=== PATIENT | male | born 1965 | race Caucasian/White ===

== ENCOUNTER 2016-12-12 14:39 | Emergency (ER) | payer BC ==
[~2016-12-12 14:39] MED LIST: ALLEGRA60 MG; FLECAINIDE ACET50 MG PO; HYCET1 ML PO; METOPROLOL SUCC50 MG PO; PROAIR HFA IN
--- NOTE | 2016-12-12 16:10 | DIAGNOSTIC IMAGING REPORT ---
PROCEDURE: XR CHEST 2 VIEW INDICATION: CHEST PAIN TECHNIQUE: PA and lateral view. COMPARISON: CT chest 05/22/2015 FINDINGS: Lungs are clear. Right apical surgical clips. Cardiovascular structures are normal. Bony thorax is unremarkable. IMPRESSION: 1. Negative chest.
--- NOTE | 2016-12-12 16:24 | ED NURSING NOTES ---
Clinical Report - Nurses [facility] [address] [place] [address] 12/12/2016 14:41 [id number] TRI[facility] Triage time 14:45. Acuity: LEVEL 3. Chief Complaint: FALL (off porch). 14:53 12/12/16. Alert. No acute distress. SEPSIS SCREEN: Sepsis Screen. Negative (no infection suspected/documented). ESAU COMA SCORE: Esau Coma Scale: 15- eyes open spontaneously (4); best verbal response- oriented x 4 (5); best motor response- obeys commands (6). --14:53 Merle Vivar R.N. 14:48 12/12/16. BP: 122/69. HR: 60. RR: 16. O2 saturation: 100% on room air. Temp: 97.6 F (oral). Pain level now 5/10. --14:53 Merle Vivar R.N. Weight: 88.4 kg stated. Height/Length: 72 inches Per Patient. BMI: 26.5. --14:48 Merle Vivar R.N. Medications Metoprolol Tartrate Oral. --14:50 Merle Vivar R.N. Allergies No Known Drug Allergy. --14:51 Merle Vivar R.N. Medication/allergy information source: the patient. --14:53 Merle Vivar R.N. History Arrived by private vehicle. Historian: patient. Accompanied by family. Primary physician (ana laura). ( fall off porch 9 days ago, hit right chest wall on 2x4. C/O continued pain, worsening with movement and deep breaths. Denies any other injuries, denies hitting head or LOC.). This occurred (9 days ago). Occurred at home. 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 Trauma activation: Pre-hospital notification of patient arrival was not received. SOCIAL HX: Never smoker. No alcohol use or drug use. FALL RISK ASSESSMENT: Fall risk assessment completed. No fall risk identified. NUTRITIONAL RISK ASSESSMENT: The nutritional risk assessment revealed no deficiencies. FUNCTIONAL ASSESSMENT: Functional assessment: no impairments noted. LEARNING NEEDS ASSESSMENT: The learning needs assessment revealed no barriers. SKIN INTEGRITY ASSESSMENT: Skin integrity risk assessment completed. No skin integrity risk identified. --14:53 Merle Vivar R.N. PROBLEMS: SVT. Pancreatitis. Cancer. Valvular Heart Disease. Arrhythmia. Hematoma. Lower Extremity Pain. MRSA Infection. --14:51 Merle Vivar R.N. ADDITIONAL SURGERIES: Cardiac ablation. Cholecystectomy. Knee Surgery. Throat cancer surgery. Tonsillectomy. Umbilical Hernia Repair. --14:51 Merle Vivar R.N. Interventions ID band on patient. To treatment room. --14:53 Merle Vivar R.N. PHYSICAL ASSESSMENT 14:53 12/12/16. Ambulatory to room. GENERAL / NEURO / PSYCH: Alert. Oriented X 4. Appears in no acute distress. RESPIRATORY: Respirations not labored. CVS: Capillary refill less than 2 seconds. GI / : Abdomen soft and nontender. EXTREMITIES: Neuro-vascular status intact to the extremity. SKIN: Skin intact. Skin is warm and dry. No ecchymosis. No skin breakdown noted. --14:53 Merle Vivar R.N. NURSING PROGRESS NOTES 14:53 12/12/16. The plan of care for this patient has been created. Patient gowned. Call light placed in reach. Bed placed in lowest position. Brakes of bed on. Patient ready for evaluation- chart flagged. --14:53 Merle Vivar R.N. 15:32 12/12/16. Patient walked back to ED from radiology with tech. --15:32 Merle Vivar R.N. DISPOSITION / DISCHARGE Condition at departure: stable. No learning barriers present. Discharge instructions provided and reviewed with the patient. Reviewed medication(s) side effects, precautions, dosing and course information. Prescription(s) given to the patient. Reviewed referral to family practice for followup. Patient verbalized understanding. Written instructions provided in Yakut. The patient was discharged home and accompanied by head shipper. He left the Emergency Department ambulatory and via private vehicle. Certified Ophthalmic Medical Technician driving. Medication list reviewed and validated. --16:42 Madhuri Gerber R.N. 16:41 12/12/16. BP: 129/71. HR: 60. RR: 16. O2 saturation: 99%. Pain level now 01/26. --16:42 Madhuri Gerber R.N. Departure time: 16:42. --16:42 Madhuri Gerber R.N. Locked/Released at 12/12/2016 16:43 by Madhuri Gerber R.N.
--- NOTE | 2016-12-12 16:24 | ED ORDER SUMMARY ---
..... Patient: FLORENCIA BERRY OrderSheet [facility] VisitID: [id number] [address] [place] [address] 51y, M Registration Date/Time: 12/12/2016 ORDER SHEET Weight: 88.4 kg (stated) Allergies: No Known Drug Allergy GENERAL ORDERS: Chest 2V Urgent (15:05 12/12/2016 Rinku Magallon) (Ack 15:05 [facility]) (15:32 Bridget Monteiro.NAlyson) MEDICATION ORDERS: IV FLUIDS: ORDER SHEET NOTES: [Electronically signed by Madhuri Gerber R.N. (16:43 12/12/2016)] [Electronically signed by Elizabeth Uriarte P.A.-C (18:50 12/12/2016)] [Electronically locked/signed by Madhuri Gerber R.N. (16:43 12/12/2016)]
--- NOTE | 2016-12-12 16:24 | ED NURSING NOTES ---
Clinical Report - Nurses [facility] [address] [place] [address] 12/12/2016 14:41 [id number] Triage time 14:45. Acuity: LEVEL 3. Chief Complaint: FALL (off porch). 14:53 12/12/16. Alert. No acute distress. SEPSIS SCREEN: Sepsis Screen. Negative (no infection suspected/documented). ESAU COMA SCORE: Esau Coma Scale: 15- eyes open spontaneously (4); best verbal response- oriented x 4 (5); best motor response- obeys commands (6). --14:53 Merle Vivar R.N. 14:48 12/12/16. BP: 122/69. HR: 60. RR: 16. O2 saturation: 100% on room air. Temp: 97.6 F (oral). Pain level now 5/10. --14:53 Merle Vivar R.N. Weight: 88.4 kg stated. Height/Length: 72 inches Per Patient. BMI: 26.5. --14:48 Merle Vivar R.N. Medications Metoprolol Tartrate Oral. --14:50 Merle Vivar R.N. Allergies No Known Drug Allergy. --14:51 Merle Vivar R.N. Medication/allergy information source: the patient. --14:53 Merle Vivar R.N. History Arrived by private vehicle. Historian: patient. Accompanied by family. Primary physician (ana laura). ( fall off porch 9 days ago, hit right chest wall on 2x4. C/O continued pain, worsening with movement and deep breaths. Denies any other injuries, denies hitting head or LOC.). This occurred (9 days ago). Occurred at home. 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 Trauma activation: Pre-hospital notification of patient arrival was not received. SOCIAL HX: Never smoker. No alcohol use or drug use. FALL RISK ASSESSMENT: Fall risk assessment completed. No fall risk identified. NUTRITIONAL RISK ASSESSMENT: The nutritional risk assessment revealed no deficiencies. FUNCTIONAL ASSESSMENT: Functional assessment: no impairments noted. LEARNING NEEDS ASSESSMENT: The learning needs assessment revealed no barriers. SKIN INTEGRITY ASSESSMENT: Skin integrity risk assessment completed. No skin integrity risk identified. --14:53 Merle Vivar R.N. PROBLEMS: SVT. Pancreatitis. Cancer. Valvular Heart Disease. Arrhythmia. Hematoma. Lower Extremity Pain. MRSA Infection. --14:51 Merle Vivar R.N. ADDITIONAL SURGERIES: Cardiac ablation. Cholecystectomy. Knee Surgery. Throat cancer surgery. Tonsillectomy. Umbilical Hernia Repair. --14:51 Merle Vivar R.N. Interventions ID band on patient. To treatment room. --14:53 Merle Vivar R.N. PHYSICAL ASSESSMENT 14:53 12/12/16. Ambulatory to room. GENERAL / NEURO / PSYCH: Alert. Oriented X 4. Appears in no acute distress. RESPIRATORY: Respirations not labored. CVS: Capillary refill less than 2 seconds. GI / : Abdomen soft and nontender. EXTREMITIES: Neuro-vascular status intact to the extremity. SKIN: Skin intact. Skin is warm and dry. No ecchymosis. No skin breakdown noted. --14:53 Merle Vivar R.N. NURSING PROGRESS NOTES 14:53 12/12/16. The plan of care for this patient has been created. Patient gowned. Call light placed in reach. Bed placed in lowest position. Brakes of bed on. Patient ready for evaluation- chart flagged. --14:53 Merle Vivar R.N. 15:32 12/12/16. Patient walked back to ED from radiology with tech. --15:32 Merle Vivar R.N. DISPOSITION / DISCHARGE Condition at departure: stable. No learning barriers present. Discharge instructions provided and reviewed with the patient. Reviewed medication(s) side effects, precautions, dosing and course information. Prescription(s) given to the patient. Reviewed referral to family practice for followup. Patient verbalized understanding. Written instructions provided in Sinhala. The patient was discharged home and accompanied by alterations supervisor. He left the Emergency Department ambulatory and via private vehicle. Panel Laminator driving. Medication list reviewed and validated. --16:42 Madhuri Gerber R.N. 16:41 12/12/16. BP: 129/71. HR: 60. RR: 16. O2 saturation: 99%. Pain level now 01/26. --16:42 Madhuri Gerber R.N. Departure time: 16:42. --16:42 Madhuri Gerber R.N. Locked/Released at 12/12/2016 16:43 by Madhuri Gerber R.N.
--- NOTE | 2016-12-12 16:24 | ED ORDER SUMMARY ---
..... Patient: FLORENCIA BERRY OrderSheet [facility] VisitID: [id number] [address] [place] [address] 51y, M Registration Date/Time: 12/12/2016 ORDER SHEET Weight: 88.4 kg (stated) Allergies: No Known Drug Allergy GENERAL ORDERS: Chest 2V Urgent (15:05 12/12/2016 Rinku Magallon) (Ack 15:05 [facility]) (15:32 Bridget Monteiro.NAlyson) MEDICATION ORDERS: IV FLUIDS: ORDER SHEET NOTES: [Electronically signed by Madhuri Gerber R.N. (16:43 12/12/2016)] [Electronically signed by Elizabeth Uriarte P.A.-C (18:50 12/12/2016)] [Electronically locked/signed by Madhuri Gerber R.N. (16:43 12/12/2016)]
--- NOTE | 2016-12-12 16:24 | ED CLINICAL REPORT ---
Clinical Report - Physicians/Mid Levels [facility] [address] [place] [address] 12/12/2016 14:41 Patient: FLORENCIA BERRY Time Seen: 15:08 Dec 12 2016. Arrived- By private vehicle. Historian- patient and significant other. HISTORY OF PRESENT ILLNESS Chief Complaint: FALL. Location of injuries- chest. The injury occurred 7 days. Fell. Occurred at home. The patient complains of moderate pain. No blow to the head, neck pain or loss of consciousness. (Patient reports falling from his neck which is about 4 feet, onto a 2 x 4 wood plank, 7 days previously, denies any LOC, reports difficulty with respiration due to pain at the time of incident. He has not followed up with his primary care provider for such. Patient reports no urinary changes in color. Denies abdominal pain, nausea or vomiting. Denies any changes in size to his abdomen. Reports pain is worsened with any movement, inspiration. Denies any new cough or fevers. Denies any new acute shortness of breath. Patient has been using Tylenol for the pain at home. He has not been seen in another facility since the incident.). PAST HISTORY Problems: SVT. Pancreatitis. Cancer. Valvular Heart Disease. Arrhythmia. Hematoma. 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 Lower Extremity Pain. MRSA Infection. Medications: Metoprolol Tartrate Oral. Allergies: No Known Drug Allergy. PHYSICAL EXAM Appearance: Alert. No acute distress. CVS: Heart sounds normal. Pulses normal. Respiratory: Chest wall injury: tenderness and small ecchymosis located in the middle, lower, right and central chest. No deformity. No splinting present. Chest wall: tenderness located in the middle, lower, right and anterior chest. Chest nontender. No decreased breath sounds, rales or wheezes. Abdomen: No visible injury. Soft. Bowel sounds normal. No abdominal tenderness. Back: No tenderness. ROM normal. Skin: Skin intact. Skin warm. Extremities: Normal inspection. Pelvis stable. Neuro: Esau Coma Scale: 15- eyes open spontaneously (4); best verbal response- oriented x 3 (5); best motor response- obeys commands (6). Oriented X 3. No motor deficit. LABS, X-RAYS, AND EKG Chest X-ray: (IMPRESSION: 1. Negative chest. Electronically Final signed by:Wei Hernández MD 12/12/2016 4:09:52 PM). PROGRESS AND PROCEDURES Course of Care: Here in the area has been 7 days post fall, most internal and urinary, as well as pneumothorax, abdominal trauma is less suspicious, and an otherwise negative exam. No signs of fracture, acute pneumothorax or infection on chest x-ray, as discussed with Dr. Huertas well as Dr. Hernández, radiology. Patient understands plan. He does have follow-up with his primary care provider for thyroid tomorrow. 12/12/2016 16:41 BP: 129/71. HR: 60. RR: 16. O2 saturation: 99%. Patient is stable. Patient/family counseled. Disposition: Discharged. CLINICAL IMPRESSION Contusion to the right chest. Fall mechanical. INSTRUCTIONS Apply ice. (stool softener/ fiber If fever, new cough, new shortness of breath return TO ER). Prescription Medications: Hydrocodone/APAP 5mg / 325mg: take 1 orally every day. Dispense twelve (12). No refill. Follow-up: Follow up with your doctor tomorrow. (Electronically signed by Elizabeth Uriarte P.A.-C 12/12/2016 18:50)
--- NOTE | 2016-12-12 18:50 | ED MED RECONCILIATION SUMMARY ---
Patient: FLORENCIA BERRY Medication Reconciliation Report [facility] VisitID: [id number] [address] [place] [address] 51y, M Registration Date/Time: 12/12/2016 Weight: 88.4 kg Height/Length: 72 in. BMI: 26.5 ALLERGIES: No Known Drug Allergy The patient's Home Medications are listed below: THE FOLLOWING MEDICATIONS NEED TO BE RECONCILED: Metoprolol Tartrate Oral The source(s) of the original Home Medication information: patient The following Medications were given to the patient in the Emergency Department: None. The following Medications were prescribed to the patient: Hydrocodone/APAP 5mg / 325mg: take 1 orally every day. Dispense twelve (12). No refill. -- Elizabeth Uriarte P.A.-C
--- NOTE | 2016-12-12 18:50 | ED DISCHARGE INSTRUCTIONS ---
Patient: FLORENCIA BERRY General Instructions [facility] VisitID: [id number] [address] [place] [address] 51y, M Registration Date/Time: 12/12/2016 Contusion to the right chest. Fall mechanical. INSTRUCTIONS Apply ice. (stool softener/ fiber If fever, new cough, new shortness of breath return TO ER). Prescription Medications: Hydrocodone/APAP 5mg / 325mg: take 1 orally every day. Dispense twelve (12). No refill. Follow-up: Follow up with your doctor tomorrow. ADDITIONAL INFORMATION Chest Contusion Acontusion is a bruise to the skin, muscle or ribs. It may cause pain, tenderness, swelling and a purplish discoloration. Contusions take a few days to a few weeks to heal. Home Care: Rest. You should not be doing any heavy lifting or strenuous exertion, or any activity that causes pain. You may use acetaminophen (Tylenol) or ibuprofen (Motrin, Advil) to control pain, unless another pain medicine was prescribed. [ NOTE: If you have chronic liver or kidney disease or ever had a stomach ulcer or GI bleeding, talk with your doctor before using these medicines.] Follow Up with your doctor during the next week or as directed. Get Prompt Medical Attention if any of the following occur: Shortness of breath Increasing chest pain with breathing Dizziness, weakness or fainting New or worsening of abdominal pain Fever of 100.4F (38C) or higher, or as directed by your healthcare provider You have been given the following additional information: Chest Wall Contusion (Electronically signed by Elizabeth Uriarte P.A.-C 12/12/2016 18:50)
--- NOTE | 2016-12-12 18:50 | ED DISCHARGE INSTRUCTIONS ---
Patient: FLORENCIA BERRY General Instructions [facility] VisitID: [id number] [address] [place] [address] 51y, M Registration Date/Time: 12/12/2016 Contusion to the right chest. Fall mechanical. INSTRUCTIONS Apply ice. (stool softener/ fiber If fever, new cough, new shortness of breath return TO ER). Prescription Medications: Hydrocodone/APAP 5mg / 325mg: take 1 orally every day. Dispense twelve (12). No refill. Follow-up: Follow up with your doctor tomorrow. ADDITIONAL INFORMATION Chest Contusion Acontusion is a bruise to the skin, muscle or ribs. It may cause pain, tenderness, swelling and a purplish discoloration. Contusions take a few days to a few weeks to heal. Home Care: Rest. You should not be doing any heavy lifting or strenuous exertion, or any activity that causes pain. You may use acetaminophen (Tylenol) or ibuprofen (Motrin, Advil) to control pain, unless another pain medicine was prescribed. [ NOTE: If you have chronic liver or kidney disease or ever had a stomach ulcer or GI bleeding, talk with your doctor before using these medicines.] Follow Up with your doctor during the next week or as directed. Get Prompt Medical Attention if any of the following occur: Shortness of breath Increasing chest pain with breathing Dizziness, weakness or fainting New or worsening of abdominal pain Fever of 100.4F (38C) or higher, or as directed by your healthcare provider You have been given the following additional information: Chest Wall Contusion (Electronically signed by Elizabeth Uriarte P.A.-C 12/12/2016 18:50)
--- NOTE | 2016-12-12 18:50 | ED MED RECONCILIATION SUMMARY ---
Patient: FLORENCIA BERRY Medication Reconciliation Report [facility] VisitID: [id number] [address] [place] [address] 51y, M Registration Date/Time: 12/12/2016 Weight: 88.4 kg Height/Length: 72 in. BMI: 26.5 ALLERGIES: No Known Drug Allergy The patient's Home Medications are listed below: THE FOLLOWING MEDICATIONS NEED TO BE RECONCILED: Metoprolol Tartrate Oral The source(s) of the original Home Medication information: patient The following Medications were given to the patient in the Emergency Department: None. The following Medications were prescribed to the patient: Hydrocodone/APAP 5mg / 325mg: take 1 orally every day. Dispense twelve (12). No refill. -- Elizabeth Uriarte P.A.-C
--- NOTE | 2016-12-12 18:50 | ED MAR SUMMARY ---
..... Medication Administration Record [facility] [address], [place] [id number] Patient: FLORENCIA BERRY Visit ID: [id number] 51y, M Weight: 88.4 kg Height/Length: 72 in BMI: 26.5 ALLERGIES: No Known Drug Allergy
--- NOTE | 2016-12-12 18:50 | ED MAR SUMMARY ---
..... Medication Administration Record [facility] [address], [place] [id number] Patient: FLORENCIA BERRY Visit ID: [id number] 51y, M Weight: 88.4 kg Height/Length: 72 in BMI: 26.5 ALLERGIES: No Known Drug Allergy
== END 2016-12-12 16:42 | disposition home or self-care (01) ==
LOC: ED SRH 14:39
DX: S20.211A Contusion of right front wall of thorax, initial encounter (principal); W17.89XA Other fall from one level to another, initial encounter; Y93.89 Activity, other specified; Y92.009 Unspecified place in unspecified non-institutional (private) residence as the place of occurrence of the external cause; Y99.9 Unspecified external cause status